=== PATIENT | female | born 1995 | race Caucasian/White ===

== ENCOUNTER → 2019-11-08 | Outpatient (CLI) | payer OTHER | END | disposition home or self-care (01) | LOC: LAB 09:27 | PROVIDERS: ATTEND Family Medicine | DX: E03.9 Hypothyroidism, unspecified (principal); N91.2 Amenorrhea, unspecified | CPT/HCPCS: 36415; 84443; 84702 ==

== ENCOUNTER → 2019-11-09 | Outpatient (CLI) | payer OTHER ==
[2019-11-09 16:50] LABS: HEMATOCRIT 43.1 % (36.0-47.0); RED BLOOD COUNT 5.21 x10^6/uL (3.50-5.40); RED CELL DISTRIBUTION WIDTH 12.6 % (11.5-14.5); WHITE BLOOD COUNT 5.8 x10^3/uL (4.0-11.0)
[2019-11-09 16:58] LABS: ALBUMIN 4.1 g/dL (3.4-5.0); ALBUMIN/GLOBULIN RATIO 1.1 (1.0-1.7); CREATININE 0.8 mg/dL (0.6-1.0); GFR 89.7; POTASSIUM 3.3 mmol/L (3.5-5.1); TOTAL BILIRUBIN 1.4 mg/dL (0.2-1.0); TOTAL PROTEIN 7.9 g/dL (6.4-8.2); URIC ACID 4.7 mg/dL (2.6-6.0)
[2019-11-10 00:07] LABS: HEMOGLOBIN A1C 7.6 % (4.8-5.6)
[2019-11-10 19:09] LABS: RUBELLA IGG ANTIBODY 1.69 index (Immune >0.99)
== END | disposition home or self-care (01) ==
LOC: LAB 14:30
PROVIDERS: ATTEND Obstetrics & Gynecology
DX: Z34.90 Encounter for supervision of normal pregnancy, unspecified, unspecified trimester (principal); Z3A.00 Weeks of gestation of pregnancy not specified
CPT/HCPCS: 36415; 80053; 81220; 83036; 83615; 84550; 85027; 86592; 86703; 86762; 86787; 86803; 86850; 86900; 86901; 87340

== ENCOUNTER → 2019-11-23 | Outpatient (CLI) | payer OTHER ==
--- NOTE | 2019-11-23 11:41 | RAD ---
OB <14 WKS W/TV History: Comparison: None. Findings: Multiple transabdominal sonographic images of the pelvis are submitted. There is an intrauterine gestational sac. Right ovary measured 2.7 x 1.3 x 2.1 cm with normal low resistance vascularity. Transvaginal ultrasound: Multiple transvaginal sonographic images of the pelvis are submitted. Uterus measured 9.6 x 5 x 5.3 cm. There is an intrauterine gestational sac with identifiable pole, demonstrable cardiac activity 111 bpm. [place]-rump length measurement of 0.64 cm corresponds with 6 weeks 3 days. Adjusted ultrasound age is 6 weeks 2 days with estimated delivery date of 07/16/2020. LMP age 7 weeks 4 days with estimated delivery date 07/07/2020. Near the identifiable pole with identifiable cardiac activity, there is another focus of more linear-appearing echogenicity in the gestational sac. If this does indeed represent another pole, this is not associated with identifiable cardiac activity. This is estimated about 0.5 cm in length. There is also focus of hypoechogenicity with internal echoes adjacent to the gestational sac about 1.9 x 0.6 cm likely due to subchorionic hemorrhage. Amniotic fluid volume is considered within normal limits. Gestational sac morphology is within normal limits. Placenta and anatomy are not well visualized due to the . Left ovary measured 3.1 x 2.7 x 2.5 cm with normal low resistance vascularity. Right ovary measured 3.2 x 1.8 x 2 cm with normal low resistance vascularity. No significant free fluid is demonstrated. Impression: 1. There is a viable intrauterine with identifiable cardiac activity associated with identifiable pole, adjusted ultrasound age 6 weeks 3 days with estimated delivery date 07/15/2020. Near the viable intrauterine , there is another focus of somewhat linear echogenicity in the gestational sac which could be due to nonviable pole/twin although given the early age, short-term follow-up is recommended to assess for cardiac activity. There is focus of subchorionic hemorrhage near gestational sac. Electronically signed by: Yuriy Aranda MD (11/23/2019 11:38 AM) [facility]
== END | disposition home or self-care (01) ==
LOC: US 10:42
PROVIDERS: ATTEND Obstetrics & Gynecology
DX: Z34.91 Encounter for supervision of normal pregnancy, unspecified, first trimester (principal); Z3A.01 Less than 8 weeks gestation of pregnancy
CPT/HCPCS: 76801; 76817

== ENCOUNTER 2020-01-19 06:38 | Emergency (ER) | payer OTHER ==
[~2020-01-19] VITALS: Ht 152.4 cm; Wt 65.3 kg
--- NOTE | 2020-01-19 07:11 | PHYS DOC ---
Adult General Chief Complaint Chief Complaint: FLANK PAIN [facility] Patient is a 24 year old female who is 15 weeks who reports with complaint of right flank pain and recent history of UTI like symptoms including some dysuria and increased frequency. She denies fever or chills, vaginal discharge or vaginal bleeding, constipation or diarrhea. She does admit to some mild lower abdominal cramping. No medications taken prior to arrival. No complications in to date. Review of Systems Review of Systems All other ROS is negative unless otherwise stated in HPI Allergies Allergies Allergies Coded Allergies Type Severity Reaction Last Updated Verified No Known Drug Allergies 01/19/20 No Physical Exam Physical Exam See above Constitutional: Well developed, well nourished, no acute distress, non-toxic appearance. [] HENT: Normocephalic, atraumatic, bilateral external ears normal, oropharynx moist, no oral exudates, nose normal. [] Eyes: PERRLA, EOMI, conjunctiva normal, no discharge. [] Neck: Normal range of motion, no tenderness, supple, no stridor. [] Cardiovascular:Heart rate regular rhythm, no murmur [] Lungs & Thorax: Bilateral breath sounds clear to auscultation [] Abdomen: Bowel sounds normal, soft, no tenderness, no masses, no pulsatile masses. [] Skin: Warm, dry, no erythema, no rash. [] Back: No tenderness, no CVA tenderness. [] Extremities: No tenderness, no cyanosis, no clubbing, ROM intact, no edema. [] Neurologic: Alert and oriented X 3, normal motor function, normal sensory function, no focal deficits noted. [] Psychologic: Affect normal, judgement normal, mood normal. [] Current Patient Data Vital Signs Vital Signs Date Time Temp Pulse Resp B/P (MAP) Pulse Ox O2 Delivery O2 Flow Rate FiO2 01/19/20 07:33 98.1 84 20 151/91 (111) 99 Room Air 98.1 Lab Values Laboratory Tests Test 01/19/20 06:45 01/19/20 07:05 Urine Collection Type Unknown Urine Color Yellow Urine Clarity Clear Urine pH 6.5 Urine Specific [place] 1.025 Urine Protein 100 mg/dL (NEG-TRACE) Urine Glucose (UA) >=1000 mg/dL (NEG) Urine Ketones (Stick) Negative mg/dL (NEG) Urine Blood Large (NEG) Urine Nitrite Positive (NEG) Urine Bilirubin Negative (NEG) Urine Urobilinogen Dipstick 1.0 mg/dL (0.2 mg/dL) Urine Leukocyte Esterase Moderate (NEG) Urine RBC 11-20 /HPF (0-2) Urine WBC >40 /HPF (0-4) Urine Bacteria Many /HPF (0-FEW) POC Urine HCG, Qualitative Hcg positive (Negative) EKG EKG [] Radiology/Procedures Radiology/Procedures [] Course & Med Decision Making Course & Med Decision Making Pertinent Labs and Imaging studies reviewed. (See chart for details) 0711: This patient is seen for details like symptoms and she is 15 weeks . We'll obtain urinalysis and heart tones. 0821: heart tones normal limit. Urinalysis shows urinary tract infection so we'll start on Macrobid twice daily for 5 days. Dragon Disclaimer Dragon Disclaimer This electronic medical record was generated, in whole or in part, using a voice recognition dictation system. Departure Departure Impression: Primary Impression: Urinary tract infection during Disposition: 01 HOME, SELF-CARE Condition: STABLE Referrals: GARCIA LEZAMA MD (PCP) Patient Instructions: - Urinary Tract Infection Additional Instructions: Push oral fluids. Please return to the ER or see your finance analyst if your symptoms are not improving in 48 hours. Scripts Nitrofurantoin Monohyd/M-Cryst (MACROBID 100 MG CAPSULE) 100 Mg Capsule 1 CAP PO BID for 7 Days, #14 CAP 0 Refills Prov: ADELSO VACA DO 01/19/20 ADELSO VACA DO Jan 19, 2020 07:11
[2020-01-19 07:25] LABS: BILIRUBIN,URINE NEGATIVE (NEG); CLARITY,URINE CLEAR; COLOR,URINE YELLOW; NITRITE,URINE POSITIVE (NEG); PH,URINE 6.5; PROTEIN,URINE 100 mg/dL (NEG-TRACE)
[2020-01-19 07:58] LABS: BACTERIA,URINE MANY /HPF (0-FEW); WBC,URINE >40 /HPF (0-4)
[2020-01-19 08:08] VITALS: BP 130/76
[2020-01-19] MEDS ORDERED: NITR100C62 PO (08:23)
[2020-01-19] MEDS ORDERED: NITROFURANTOIN MONOHYD/M-CRYST 100 MG CAPSULE. PO ONE (08:30)
== END 2020-01-19 08:51 | disposition home or self-care (01) ==
LOC: ER 06:38
DX: O23.42 Unspecified infection of urinary tract in pregnancy, second trimester (principal); R10.30 Lower abdominal pain, unspecified; Z3A.15 15 weeks gestation of pregnancy
CPT/HCPCS: 81001; 81025; 87086; 99283

== ENCOUNTER → 2020-02-07 | Outpatient (CLI) | payer OTHER ==
[2020-01-19 08:08] VITALS: BP 130/76
[~2020-02-07] MED LIST: NITR100C62 PO
[2020-02-07 08:24] LABS: FREE T4 1.39 ng/dL (0.76-1.46); THYROID STIM HORMONE (TSH) 4.175 uIU/mL (0.358-3.74)
[2020-02-07 20:07] LABS: HEMOGLOBIN A1C 6.2 % (4.8-5.6)
== END | disposition home or self-care (01) ==
LOC: LAB 07:04
PROVIDERS: ATTEND Obstetrics & Gynecology
DX: O24.012 Pre-existing type 1 diabetes mellitus, in pregnancy, second trimester (principal); Z3A.17 17 weeks gestation of pregnancy
CPT/HCPCS: 36415; 81511; 83036; 84439; 84443

== ENCOUNTER → 2020-04-09 | Outpatient (CLI) | payer OTHER | END | disposition home or self-care (01) | LOC: LAB 07:20 | PROVIDERS: ATTEND Obstetrics & Gynecology | DX: Z34.92 Encounter for supervision of normal pregnancy, unspecified, second trimester (principal); Z3A.00 Weeks of gestation of pregnancy not specified | CPT/HCPCS: 36415; 84439; 84443 ==

== ENCOUNTER → 2020-05-14 | Outpatient (CLI) | payer OTHER ==
--- NOTE | 2020-05-14 17:22 | RAD ---
EXAM: Ultrasound OB Greater than 14 weeks INDICATION: Reason: PRE EXISTING DIABETES GROWTH FOR PREGEST DM / Spl. Instructions: / History: TECHNIQUE: Real-time obstetrical ultrasound was performed with permanent freeze-frame documentation. COMPARISON: 11/23/2019 OB ultrasound ultrasound FINDINGS: POSITION: Cephalic HEART RATE: 1 33 bpm SAGAR: 12.2 cm PLACENTA: Posterior fundal CERVICAL LENGTH: Not well assessed MATERNAL UTERUS: Unremarkable. MATERNAL ADNEXA: Unremarkable. AGE/DATES: Gestational Age by LMP: 32 weeks 2 days Gestation Age by US: 34 weeks 5 days EDC by LMP: July 07, 2020 EDC by US: June 20, 2020 WEIGHT: 2516 grams +/- 372 grams PERCENTILE WEIGHT: 78%Unremarkable. BIOMETRIC PARAMETERS: BPD: 8.7 cm corresponding with 35 weeks 2 days HC: 31.3 cm corresponding with 35 weeks 1 day AC: 31.6 cm corresponding with 35 weeks 3 days FL: 6.4 cm corresponding with 33 weeks 1 day IMPRESSION: Normal OB ultrasound demonstrating a single viable fetus in cephalic position. Estimated gestational age of 34 weeks 5 days and EDC of June 20, 2020. Electronically signed by: Yoli Machado MD (05/14/2020 5:19 PM) [id number]
== END | disposition home or self-care (01) ==
LOC: US 14:58
PROVIDERS: ATTEND Obstetrics & Gynecology
DX: O24.013 Pre-existing type 1 diabetes mellitus, in pregnancy, third trimester (principal); E10.9 Type 1 diabetes mellitus without complications; Z3A.34 34 weeks gestation of pregnancy
CPT/HCPCS: 76805

== ENCOUNTER 2020-05-21 11:25 | Observation (INO) | payer OTHER ==
[~2020-05-21] VITALS: Ht 152.4 cm; Wt 169.0 kg
[2020-05-21 12:45] LABS: BASO % 1 % (0-3); EOS # 0.1 x10^3/uL (0.0-0.7); EOS % 1 % (0-3); HEMATOCRIT 34.1 % (36.0-47.0); LYMPH # 1.4 x10^3/uL (1.0-4.8); LYMPH % 22 % (24-48); MEAN CORPUSCULAR HEMOGLOBIN 28 pg (25-35); MEAN CORPUSCULAR HGB CONC 35 g/dL (31-37); MEAN CORPUSCULAR VOLUME 79 fL (79-100); MONO # 0.5 x10^3/uL (0.0-1.1); MONO % 8 % (0-9); NEUT # 4.4 x10^3/uL (1.8-7.7); NEUT % 68 % (31-73); PLATELET COUNT 196 x10^3/uL (140-400); RED BLOOD COUNT 4.31 x10^6/uL (3.50-5.40); RED CELL DISTRIBUTION WIDTH 13.1 % (11.5-14.5); WHITE BLOOD COUNT 6.5 x10^3/uL (4.0-11.0)
--- NOTE | 2020-05-21 15:20 | RAD ---
Biophysical profile: Clinical indications: Maternal diabetes. Findings: A single intrauterine is present in the cephalic position. heart rate is 136. breathing movements: 2. motion: 2. tone: 2. Amniotic fluid volume: 2. Therefore, the biophysical profile score is 8 out of 8. Cervical length-not visualized. SAGAR using the 4 quadrant method is 12.9 cm. Impression: Biophysical profile score is 8 out of 8. Electronically signed by: Segundo West MD (05/21/2020 3:18 PM) [id number]
--- NOTE | 2020-05-21 15:27 | RAD ---
Limited OB ultrasound study Clinical indications: . Maternal diabetes. Hypothyroidism. COMPARISON: May 14, 2020. FINDINGS: Single IUP is seen in cephalic presentation. heart rate is 136 bpm. BPD equals 8.5 cm which corresponds to 35 weeks 5 days. HC equals 30.50 cm which corresponds to 34 weeks 0 days. Abdominal circumference equals 22.28 cm which corresponds to 36 weeks 1 day. Femur length equals 6.75 cm which corresponds to 34 weeks 5 days. Average gestational age by ultrasound is 35 weeks 1 day +/- 3 weeks with an EDC of June 24, 2020. There's been normal interval growth. Estimated weight is 2699 g or 5 pounds and 15 ounces. Cervical length is not visualized. Posterior fundal grade 1 placenta is seen. SAGAR using the 4 quadrant method is 12.9 cm. IMPRESSION: Single IUP in cephalic presentation with gestational age of 35 weeks 1 day. Electronically signed by: Segundo West MD (05/21/2020 3:24 PM) [id number]
[2020-05-22 02:08] LABS: HEMOGLOBIN A1C 6.7 % (4.8-5.6)
== END 2020-05-21 14:11 | disposition home or self-care (01) ==
LOC: 3 SO LND 11:25
PROVIDERS: ADMIT Obstetrics & Gynecology; ATTEND Obstetrics & Gynecology
DX: O24.419 Gestational diabetes mellitus in pregnancy, unspecified control (principal); E03.9 Hypothyroidism, unspecified; Z3A.35 35 weeks gestation of pregnancy
CPT/HCPCS: 36415; 76815; 76819; 83036; 84443; 85025; G0378; G0379

== ENCOUNTER 2020-05-29 10:24 | Observation (INO) | payer OTHER ==
[2020-05-29 11:04] LABS: HEMATOCRIT 34.6 % (36.0-47.0); HEMOGLOBIN 12.2 g/dL (12.0-15.5); RED BLOOD COUNT 4.42 x10^6/uL (3.50-5.40); RED CELL DISTRIBUTION WIDTH 13.5 % (11.5-14.5)
[2020-05-29 11:25] LABS: CALCIUM 8.5 mg/dL (8.5-10.1); GFR 68.7; POTASSIUM 4.2 mmol/L (3.5-5.1)
[2020-05-29 11:30] LABS: ALBUMIN 2.7 g/dL (3.4-5.0); ALBUMIN/GLOBULIN RATIO 0.8 (1.0-1.7); TOTAL BILIRUBIN 0.6 mg/dL (0.2-1.0); TOTAL PROTEIN 6.1 g/dL (6.4-8.2); URIC ACID 7.3 mg/dL (2.6-6.0)
[2020-05-29 12:21] LABS: CREATININE,RANDOM URINE 333.5 mg/dL (Not Establ.)
--- NOTE | 2020-05-29 14:56 | RAD ---
EXAM: OBSTETRIC ULTRASOUND WITH BIOPHYSICAL PROFILE. HISTORY: Diabetes, well-being. COMPARISON: None. FINDINGS: Sonographic evaluation of the uterus, fetus and maternal pelvis was performed with biophysical profile. There is a single fetus in vertex presentation. heart rate is 136 bpm. Estimated gestational age based on measurements is 37 weeks 1 day. Head circumference, biparietal diameter, abdominal circumference and femur length are commensurate. Estimated weight is 3111 g. The placenta is anterior. There is no evidence of placenta previa. Amniotic fluid volume appears normal with amniotic fluid index 14.7 cm. Biophysical profile score: 8/8. breathin. tone: 2. movement: 2. Amniotic fluid volume: 2. The maternal adnexa are obscured by positioning currently. IMPRESSION: 1. Biophysical profile score: 8/8. 2. Single fetus in vertex presentation. heart rate 136 bpm. Estimated gestational age based on measurements 37 weeks 1 day. Electronically signed by: Socorro Schrader MD (05/29/2020 2:53 PM) [id number]
== END 2020-05-29 13:27 | disposition home or self-care (01) ==
LOC: 3 SO LND 10:24
PROVIDERS: ADMIT Obstetrics & Gynecology; ATTEND Obstetrics & Gynecology
DX: O13.3 Gestational [pregnancy-induced] hypertension without significant proteinuria, third trimester (principal); O62.9 Abnormality of forces of labor, unspecified; Z3A.34 34 weeks gestation of pregnancy
CPT/HCPCS: 36415; 59025; 76815; 76819; 80053; 82570; 83615; 84156; 84550; 85027; 87653; G0378; G0379

== ENCOUNTER 2020-06-01 13:56 | Observation (INO) | payer OTHER ==
[2020-06-01 14:15] LABS: BILIRUBIN,URINE NEGATIVE (NEG); CLARITY,URINE CLEAR; COLOR,URINE YELLOW; NITRITE,URINE NEGATIVE (NEG); PH,URINE 6.5 (<5.0-8.0); PROTEIN,URINE >=300 mg/dL (NEG-TRACE); UROBILINOGEN,URINE 0.2 mg/dL (0.2 mg/dL)
[2020-06-01] MEDS ORDERED: IV RINGERS,LACTATED 1000ML 1,000 ML IV PRN (14:15)
[2020-06-01 14:25] LABS: BACTERIA,URINE MANY /HPF (0-FEW); SQUAMOUS EPITHELIAL CELL,UR MANY /LPF
[2020-06-01 14:27] LABS: RBC,URINE RARE /HPF (0-2)
[2020-06-01 14:32] LABS: HEMATOCRIT 34.7 % (36.0-47.0); HEMOGLOBIN 12.2 g/dL (12.0-15.5); RED BLOOD COUNT 4.44 x10^6/uL (3.50-5.40); RED CELL DISTRIBUTION WIDTH 13.7 % (11.5-14.5); WHITE BLOOD COUNT 6.5 x10^3/uL (4.0-11.0)
[2020-06-01] MEDS ORDERED: NIFE30TA2 PO (14:40)
[2020-06-01] MEDS ORDERED: BETAMET ACET&NA PHOS 30 MG/5 ML VIAL. IM ONE (14:45)
[2020-06-01 14:53] LABS: ALBUMIN 2.4 g/dL (3.4-5.0); ALBUMIN/GLOBULIN RATIO 0.7 (1.0-1.7); GFR 68.7; POTASSIUM 4.2 mmol/L (3.5-5.1); TOTAL BILIRUBIN 0.5 mg/dL (0.2-1.0); URIC ACID 7.8 mg/dL (2.6-6.0)
[2020-06-01 14:58] LABS: CALCIUM 8.3 mg/dL (8.5-10.1)
[2020-06-01 15:12] VITALS: BP 142/74
[2020-06-01] MEDS ORDERED: BETAMET ACET&NA PHOS 30 MG/5 ML VIAL. IM SCH (15:30)
== END 2020-06-01 15:30 | disposition home or self-care (01) ==
LOC: 3 SO LND 13:56
PROVIDERS: ADMIT Obstetrics & Gynecology; ATTEND Obstetrics & Gynecology
DX: O13.3 Gestational [pregnancy-induced] hypertension without significant proteinuria, third trimester (principal); R60.9 Edema, unspecified; Z3A.37 37 weeks gestation of pregnancy
CPT/HCPCS: 36415; 80053; 81001; 83615; 84550; 85027; 87086; 96372; G0378; G0379; J0702

== ENCOUNTER 2020-06-02 13:55 | Observation (INO) | payer OTHER ==
[2020-06-01 15:12] VITALS: BP 142/74
[~2020-06-02 13:55] MED LIST changes: +NIFE30TA2 PO
[2020-06-02] MEDS ORDERED: IV RINGERS,LACTATED 1000ML 1,000 ML IV SCH (14:30)
[2020-06-02] MEDS ORDERED: BETAMET ACET&NA PHOS 30 MG/5 ML VIAL. IM ONE ×2 (14:30→15:00)
== END 2020-06-02 14:55 | disposition home or self-care (01) ==
LOC: 3 SO LND 13:55
PROVIDERS: ADMIT Obstetrics & Gynecology; ATTEND Obstetrics & Gynecology
DX: O26.893 Other specified pregnancy related conditions, third trimester (principal); O24.913 Unspecified diabetes mellitus in pregnancy, third trimester; O99.283 Endocrine, nutritional and metabolic diseases complicating pregnancy, third trimester; E03.9 Hypothyroidism, unspecified; Z3A.35 35 weeks gestation of pregnancy
CPT/HCPCS: 96372; G0378; G0379; J0702

== ENCOUNTER 2020-06-04 12:06 | Observation (INO) | payer OTHER ==
[2020-06-04] MEDS ORDERED: IV RINGERS,LACTATED 1000ML 1,000 ML IV SCH (12:07)
[2020-06-04] MEDS ORDERED: AMPICILLIN SODIUM 2 GM in IV NORMAL SALINE 100ML 100 ML IV SCH (12:30)
--- NOTE | 2020-06-04 15:18 | RAD ---
INDICATION: Reason: diabetic hypothyroid / Spl. Instructions: / History: COMPARISON: May 29, 2020 TECHNIQUE: Focused ultrasound was performed of the uterus in order to obtain a biophysical profile. Please note that this is not a complete anatomic survey. FINDINGS: Breathin Gross Body Movement: 2 Tone: 2 Amniotic Fluid Volume 2. Cephalic presentation at time of exam. heartbeat 145. Estimated gestational age 38 weeks and 2 days. Estimated weight 3459 g. Amniotic fluid index of 15.5. Estimated weight 93rd percentile. IMPRESSION: biophysical profile score is 8 out of 8. Electronically signed by: Mateusz Chung MD (06/04/2020 3:15 PM) [id number]
== END 2020-06-04 13:41 | disposition home or self-care (01) ==
LOC: 3 SO LND 12:06
PROVIDERS: ADMIT Obstetrics & Gynecology; ATTEND Obstetrics & Gynecology
DX: Z03.818 Encounter for observation for suspected exposure to other biological agents ruled out (principal); O99.283 Endocrine, nutritional and metabolic diseases complicating pregnancy, third trimester; O24.913 Unspecified diabetes mellitus in pregnancy, third trimester; Z3A.35 35 weeks gestation of pregnancy; Z79.4 Long term (current) use of insulin
CPT/HCPCS: 76819; G0378; G0379; U0003; 59025

== ENCOUNTER 2020-06-07 18:27 | Inpatient (IN) | payer OTHER ==
[~2020-06-07] VITALS: Ht 152.4 cm; Wt 86.6 kg
[2020-06-07] MEDS ORDERED: IV RINGERS,LACTATED 1000ML 1,000 ML IV SCH ×2 (19:08→19:15)
[2020-06-07] MEDS ORDERED: TERBUTALINE 1 MG/ML VIAL. SQ PRN (19:15)
[2020-06-07] MEDS ORDERED: BUTORPHANOL 2 MG/ML VIAL. IVP PRN (19:15)
[2020-06-07] MEDS ORDERED: 0.9 % SODIUM CHLORIDE 10 ML DISP.SYRIN. IV PRN (19:15)
[2020-06-07] MEDS ORDERED: hydrALAZINE 20 MG/ML VIAL. IVP ONE ×2 (19:15→20:30)
[2020-06-07] MEDS ORDERED: LIDOCAINE 1% PF 30 ML VIAL. INJ PRN (19:15)
[2020-06-07] MEDS ORDERED: OXYTOCIN 30 UNIT/500 ML PREMIX 500 ML IV PRN (19:15)
[2020-06-07] MEDS ORDERED: IV NORMAL SALINE 1000ML BAG 1,000 ML IV SCH (19:16)
[2020-06-07 19:22] LABS: BILIRUBIN,URINE NEGATIVE (NEG); CLARITY,URINE CLEAR; COLOR,URINE YELLOW; NITRITE,URINE NEGATIVE (NEG); PH,URINE 6.5 (<5.0-8.0); PROTEIN,URINE >=300 mg/dL (NEG-TRACE); UROBILINOGEN,URINE 0.2 mg/dL (0.2 mg/dL)
[2020-06-07] MEDS ORDERED: DINOPROSTONE 10 MG SUPP.VAG VG ONE (19:30)
[2020-06-07 19:33] LABS: HYALINE CASTS, URINE MANY /HPF; SQUAMOUS EPITHELIAL CELL,UR MOD /LPF
[2020-06-07 19:34] LABS: BACTERIA,URINE FEW /HPF (0-FEW); RBC,URINE >40 /HPF (0-2)
--- NOTE | 2020-06-07 19:48 | PDOC1 ---
PIGMENT PUSHER H&P Date of Admission: Date of Admission: Jun 07, 2020 at 18:27 History of Present Illness: EDC: 07/07/20 LMP 10/01/19 HPI: 25y @ 36.1 by L=13 presents to L&D with BOOTHE and RUQ pain. The pt was placed on indxn for 06/11 but with worsening symptoms decision was made to start indxn at this time. As the progressed, the pt has developed more BP. The pt has developed more swelling over the last couple of wks. Her BP have worsened to the point that Procardia 30 XL was started 06/01. Over the past wk her labs have been trending worse. From her baseline (on 11/09) to last wk (05/29 -> 06/01) her LFTs have increased ( -> -> ). The same trend with her Cr (0.8 -> 1.0 -> 1.0), Plt (301 -> 185 -> 156), uric acid (4.7 -> 7.3 -> 7.8), and LDH (97-> 118 -> 142). Based on meeting the criteria for superimposed preeclampsia based on the new onset proteinuria the pt is being induced. The pt also has hypothyroidism. Her Synthroid was increased in the second trimester but has remain stable over the last 2 trimesters. The pt has been seen by Aretha RUIZ throughout the . The pt has had type I DM since 7yo. She currently manages her DM with an insulin pump. Her FSBS control has been labial throughout the with her last HgbA1C being 6.7 on 05/21 (She has never had a HgbA1C below 6). Prior to the pt was on enalapril for HTN. She was able to be on no meds for most of the . PMH: Hypothyroidism, HTN, DM type I PSH: Denies OBHx: G1 Studio Model: LMP 10/01/19 SH: no tob, no EtOH FH: HTN, stroke, DM, [place], hypothyroidism Medications: Meds: Current Medications Medications (Trade) Dose Ordered Sig/Blas Route PRN Reason Start Time Stop Time Status Last Admin Dose Admin Ringer's Solution 1,000 ml @ 125 mls/hr Q8H IV 06/07/20 19:15 06/07/20 19:34 Hydralazine HCl (Apresoline Inj) 5 mg 1X ONCE IVP 06/07/20 19:15 06/07/20 19:16 DC 06/07/20 19:31 Ringer's Solution 1,000 ml @ 125 mls/hr Q8H IV 06/07/20 19:08 06/07/20 19:33 Allergies: Coded Allergies: No Known Drug Allergies (Unverified , 05/21/20) Physical Exam: Vital Signs: Vital Signs Date Time Temp Pulse Resp B/P (MAP) Pulse Ox O2 Delivery O2 Flow Rate FiO2 06/07/20 19:31 93 188/101 PE: GENERAL: No apparent distress. Alert and oriented. HEENT: Head normocephalic, atraumatic. NECK: Supple LUNGS: Clear to auscultation. HEART: RRR, S1, S2 present, pulses intact ABDOMEN: Soft, positive bowel sounds. EXTREMITIES: No cyanosis or edema. NEUROLOGIC: Normal speech, normal tone PSYCHIATRIC: Normal affect, normal mood. SKIN: No ulceration. FHT: 130s +acels/no decels/mLTV [place]: 2-5 min SVE: 2/-3 Labs: Laboratory Tests Test 06/07/20 18:38 Urine Collection Type Unknown Urine Color Yellow Urine Clarity Clear Urine pH 6.5 (<5.0-8.0) Urine Specific [place] 1.025 (1.000-1.030) Urine Protein >=300 mg/dL (NEG-TRACE) Urine Glucose (UA) Negative mg/dL (NEG) Urine Ketones (Stick) Trace mg/dL (NEG) Urine Blood Large (NEG) Urine Nitrite Negative (NEG) Urine Bilirubin Negative (NEG) Urine Urobilinogen Dipstick 0.2 mg/dL (0.2 mg/dL) Urine Leukocyte Esterase Negative (NEG) Urine RBC >40 /HPF (0-2) Urine WBC 1-4 /HPF (0-4) Urine Squamous Epithelial Cells Mod /LPF Urine Bacteria Few /HPF (0-FEW) Urine Hyaline Casts Many /HPF Urine Mucus Mod /LPF Assessment & Plan: A/P 25y @ 36.1 by L=13 1.) Indxn cervidil placed at 1946 2.) cHTN with superimposed preeclampsia- based on new onset proteinuria, on Procardia 30 XL and ASA, now with worsening BPs, given hydralazine 5mg x 1, abnml elevation of uric acid, Pr/Cr 0.662 (up from her baseline 0.074 on 11/23/19), will Mag in active labor 3.) Baseline PIH labs - wnl, baseline urine Pr/Cr wnl 4.) DDM - type I DM on insulin pump, HgbA1c 8.0 (09/21) -> 6.2 (02/06) -> 6.7 (05/21), labial control, s/p [facility] visit, nml echo, growth u/s on 05/14 (78%ile), recent growth 06/04/20 (3459g, 93%ile) 5.) Hypothyroidism - on synthroid 125mcg, TSH 2.662 (05/21), goal < 3.0 6.) s/p BMTZ 06/01 and 06/02 7.) Fetus cat I FHT, vtx, EFW 3459 (06/04, 93%) 8.) GBS neg 9.) TDAP given 05/09/20 10.) Girl - CARINA Jha MD Jun 07, 2020 19:48
[2020-06-07 19:52] LABS: BASO % 1 % (0-3); EOS # 0.1 x10^3/uL (0.0-0.7); EOS % 1 % (0-3); HEMATOCRIT 32.1 % (36.0-47.0); HEMOGLOBIN 11.5 g/dL (12.0-15.5); LYMPH # 1.2 x10^3/uL (1.0-4.8); LYMPH % 16 % (24-48); MEAN CORPUSCULAR HEMOGLOBIN 28 pg (25-35); MEAN CORPUSCULAR HGB CONC 36 g/dL (31-37); MEAN CORPUSCULAR VOLUME 77 fL (79-100); MONO # 0.5 x10^3/uL (0.0-1.1); MONO % 7 % (0-9); NEUT # 5.8 x10^3/uL (1.8-7.7); NEUT % 76 % (31-73); PLATELET COUNT 126 x10^3/uL (140-400); RED BLOOD COUNT 4.16 x10^6/uL (3.50-5.40); RED CELL DISTRIBUTION WIDTH 14.2 % (11.5-14.5); WHITE BLOOD COUNT 7.7 x10^3/uL (4.0-11.0)
[2020-06-07 20:12] LABS: ALBUMIN 2.1 g/dL (3.4-5.0); ALBUMIN/GLOBULIN RATIO 0.6 (1.0-1.7); CALCIUM 8.1 mg/dL (8.5-10.1); CREATININE 0.9 mg/dL (0.6-1.0); GFR 77.6; POTASSIUM 3.8 mmol/L (3.5-5.1); TOTAL BILIRUBIN 0.6 mg/dL (0.2-1.0); TOTAL PROTEIN 5.8 g/dL (6.4-8.2); URIC ACID 8.2 mg/dL (2.6-6.0)
[2020-06-07 20:27] VITALS: BP 184/108
[2020-06-07] MEDS ORDERED: LABETALOL 20 MG/4 ML DISP.SYRIN. IVP PRN ×2 (20:30)
[2020-06-07] MEDS ORDERED: LEVO150T PO (20:39)
[2020-06-07] MEDS ORDERED: PREN1TAB58 PO (20:40)
[2020-06-07] MEDS ORDERED: diphenhydrAMINE HCL 25 MG CAPSULE PO PRN (20:45)
[2020-06-07] MEDS: ACETAMINOPHEN 325 MG TABLET. PO PRN (21:53)
[2020-06-07] MEDS: hydrALAZINE 20 MG/ML VIAL. IVP PRN ×2 (22:16→23:18)
[2020-06-07] MEDS ORDERED: ONDANSETRON PF 4 MG/2 ML VIAL. IVP PRN (23:30)
[2020-06-08] MEDS: ACETAMINOPHEN 325 MG TABLET. PO PRN (03:07)
[2020-06-08] MEDS ORDERED: OXYTOCIN 30 UNIT/500 ML PREMIX 500 ML IV ONE (07:30)
[2020-06-08] MEDS ORDERED: MAGNESIUM SULFATE 2GM 50 ML IV ONE (08:15)
[2020-06-08] MEDS ORDERED: MAGNESIUM SULFATE 4GM 100 ML IV ONE (08:15)
--- NOTE | 2020-06-08 08:30 | PDOC ---
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 Denies changes in vision or abd pain. Nausea is better Objective: Vital Signs: Vital Signs Date Time Temp Pulse Resp B/P (MAP) Pulse Ox O2 Delivery O2 Flow Rate FiO2 06/07/20 19:31 93 188/101 06/07/20 20:27 98.5 18 Room Air 98.5 Vital Signs Date Time Temp Pulse Resp B/P (MAP) Pulse Ox O2 Delivery O2 Flow Rate FiO2 06/07/20 23:18 113 174/88 06/07/20 20:27 98.5 18 Room Air 98.5 Labs: Laboratory Tests Test 06/07/20 18:38 06/07/20 19:30 Urine Collection Type Unknown Urine Color Yellow Urine Clarity Clear Urine pH 6.5 (<5.0-8.0) Urine Specific [place] 1.025 (1.000-1.030) Urine Protein >=300 mg/dL (NEG-TRACE) Urine Glucose (UA) Negative mg/dL (NEG) Urine Ketones (Stick) Trace mg/dL (NEG) Urine Blood Large (NEG) Urine Nitrite Negative (NEG) Urine Bilirubin Negative (NEG) Urine Urobilinogen Dipstick 0.2 mg/dL (0.2 mg/dL) Urine Leukocyte Esterase Negative (NEG) Urine RBC >40 /HPF (0-2) Urine WBC 1-4 /HPF (0-4) Urine Squamous Epithelial Cells Mod /LPF Urine Bacteria Few /HPF (0-FEW) Urine Hyaline Casts Many /HPF Urine Mucus Mod /LPF White Blood Count 7.7 x10^3/uL (4.0-11.0) Red Blood Count 4.16 x10^6/uL (3.50-5.40) Hemoglobin 11.5 g/dL (12.0-15.5) L Hematocrit 32.1 % (36.0-47.0) L Mean Corpuscular Volume 77 fL (79-100) L Mean Corpuscular Hemoglobin 28 pg (25-35) Mean Corpuscular Hemoglobin Concent 36 g/dL (31-37) Red Cell Distribution Width 14.2 % (11.5-14.5) Platelet Count 126 x10^3/uL (140-400) L Neutrophils (%) (Auto) 76 % (31-73) H Lymphocytes (%) (Auto) 16 % (24-48) L Monocytes (%) (Auto) 7 % (0-9) Eosinophils (%) (Auto) 1 % (0-3) Basophils (%) (Auto) 1 % (0-3) Neutrophils # (Auto) 5.8 x10^3/uL (1.8-7.7) Lymphocytes # (Auto) 1.2 x10^3/uL (1.0-4.8) Monocytes # (Auto) 0.5 x10^3/uL (0.0-1.1) Eosinophils # (Auto) 0.1 x10^3/uL (0.0-0.7) Basophils # (Auto) 0.0 x10^3/uL (0.0-0.2) Sodium Level 136 mmol/L (136-145) Potassium Level 3.8 mmol/L (3.5-5.1) Chloride Level 103 mmol/L (98-107) Carbon Dioxide Level 19 mmol/L (21-32) L Anion Gap 14 (6-14) Blood Urea Nitrogen 17 mg/dL (7-20) Creatinine 0.9 mg/dL (0.6-1.0) Estimated GFR (Cockcroft-Gault) 77.6 BUN/Creatinine Ratio 19 (6-20) Glucose Level 123 mg/dL (70-99) H Uric Acid 8.2 mg/dL (2.6-6.0) H Calcium Level 8.1 mg/dL (8.5-10.1) L Total Bilirubin 0.6 mg/dL (0.2-1.0) Aspartate Amino Transferase (AST) 38 U/L (15-37) H Alanine Aminotransferase (ALT) 26 U/L (14-59) Alkaline Phosphatase 157 U/L (46-116) H Lactate Dehydrogenase 163 U/L (81-234) Total Protein 5.8 g/dL (6.4-8.2) L Albumin 2.1 g/dL (3.4-5.0) L Albumin/Globulin Ratio 0.6 (1.0-1.7) L Treponema pallidum Antibody Nonreactive (Nonreactive) Laboratory Tests 06/07/20 19:30 Laboratory Tests 06/07/20 19:30 Laboratory Tests 06/07/20 19:30 Physical Exam: GENERAL: No apparent distress. Alert and oriented. HEENT: Head normocephalic, atraumatic. NECK: Supple LUNGS: Clear to auscultation. HEART: RRR, S1, S2 present, pulses intact ABDOMEN: Soft, positive bowel sounds. EXTREMITIES: No cyanosis or edema. NEUROLOGIC: Normal speech, normal tone PSYCHIATRIC: Normal affect, normal mood. SKIN: No ulceration. FHT: 140s +acelx/no decels/mLTV [place]: 1-4 min SVE: 2/60/-3 Assessment & Plan: A/P 25y @ 35.6 by L=13 1.) Indxn s/p cervidil, will start Pit 2.) cHTN with superimposed preeclampsia- based on new onset proteinuria and now worsening BPs, Procardia 30 XL increased BID, on ASA, given hydralazine x 3 (), abnml elevation of AST and uric acid, Pr/Cr 0.662 (up from her baseline 0.074 on 11/23/19), will start Mag 3.) Baseline PIH labs - wnl, baseline urine Pr/Cr wnl 4.) DDM - type I DM on insulin pump, HgbA1c 8.0 (09/21) -> 6.2 (02/06) -> 6.7 (05/21), labial control, s/p VO[facility] visit, nml echo, growth u/s on 05/14 (78%ile), recent growth 06/04/20 (3459g, 93%ile) 5.) Hypothyroidism - on synthroid 125mcg, TSH 2.662 (05/21), goal < 3.0 6.) s/p BMTZ 06/01 and 06/02 7.) Fetus cat I FHT, vtx, EFW 3459 (06/04, 93%) 8.) GBS neg 9.) TDAP given 05/09/20 10.) Girl - CARINA Jha MD Jun 08, 2020 08:30
[2020-06-08] MEDS: MAGNESIUM SULFATE 20GM 500 ML IV SCH ×2 (10:50→20:20)
[2020-06-08] MEDS ORDERED: IV RINGERS,LACTATED 1000ML 1,000 ML IV ONE (12:02)
[2020-06-08] MEDS ORDERED: ROPIVacaine 0.2% PF 10 ML VIAL. ONE ×4 (12:05→18:33)
[2020-06-08] MEDS ORDERED: fentaNYL PF VIAL 100 MCG/2 ML VIAL ONE (12:05)
[2020-06-08] MEDS ORDERED: ONDANSETRON PF 4 MG/2 ML VIAL. IV PRN (12:15)
[2020-06-08] MEDS ORDERED: NALOXONE 0.4 MG/ML VIAL. IV PRN (12:15)
[2020-06-08] MEDS ORDERED: ePHEDrine PF IN SALINE 50 MG/10 ML SYRINGE. IV PRN (12:15)
[2020-06-08] MEDS ORDERED: L&D EPIDURAL 50 ML SYRINGE. ONE (12:30)
[2020-06-08] MEDS: L&D EPIDURAL SYRINGE 50 ML EPID PRN ×4 (15:34→23:30)
--- NOTE | 2020-06-08 16:03 | PDOC ---
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 Subjective: Pt comfortable with epidura Objective: Vital Signs: Vital Signs Date Time Temp Pulse Resp B/P (MAP) Pulse Ox O2 Delivery O2 Flow Rate FiO2 06/07/20 19:31 93 188/101 06/07/20 20:27 98.5 18 Room Air 98.5 Vital Signs Date Time Temp Pulse Resp B/P (MAP) Pulse Ox O2 Delivery O2 Flow Rate FiO2 06/08/20 15:34 16 Room Air 06/08/20 09:59 91 146/76 06/07/20 20:27 98.5 98.5 Labs: Laboratory Tests Test 06/07/20 18:38 06/07/20 19:30 06/08/20 15:06 Urine Collection Type Unknown Urine Color Yellow Urine Clarity Clear Urine pH 6.5 (<5.0-8.0) Urine Specific [place] 1.025 (1.000-1.030) Urine Protein >=300 mg/dL (NEG-TRACE) Urine Glucose (UA) Negative mg/dL (NEG) Urine Ketones (Stick) Trace mg/dL (NEG) Urine Blood Large (NEG) Urine Nitrite Negative (NEG) Urine Bilirubin Negative (NEG) Urine Urobilinogen Dipstick 0.2 mg/dL (0.2 mg/dL) Urine Leukocyte Esterase Negative (NEG) Urine RBC >40 /HPF (0-2) Urine WBC 1-4 /HPF (0-4) Urine Squamous Epithelial Cells Mod /LPF Urine Bacteria Few /HPF (0-FEW) Urine Hyaline Casts Many /HPF Urine Mucus Mod /LPF White Blood Count 7.7 x10^3/uL (4.0-11.0) Red Blood Count 4.16 x10^6/uL (3.50-5.40) Hemoglobin 11.5 g/dL (12.0-15.5) L Hematocrit 32.1 % (36.0-47.0) L Mean Corpuscular Volume 77 fL (79-100) L Mean Corpuscular Hemoglobin 28 pg (25-35) Mean Corpuscular Hemoglobin Concent 36 g/dL (31-37) Red Cell Distribution Width 14.2 % (11.5-14.5) Platelet Count 126 x10^3/uL (140-400) L Neutrophils (%) (Auto) 76 % (31-73) H Lymphocytes (%) (Auto) 16 % (24-48) L Monocytes (%) (Auto) 7 % (0-9) Eosinophils (%) (Auto) 1 % (0-3) Basophils (%) (Auto) 1 % (0-3) Neutrophils # (Auto) 5.8 x10^3/uL (1.8-7.7) Lymphocytes # (Auto) 1.2 x10^3/uL (1.0-4.8) Monocytes # (Auto) 0.5 x10^3/uL (0.0-1.1) Eosinophils # (Auto) 0.1 x10^3/uL (0.0-0.7) Basophils # (Auto) 0.0 x10^3/uL (0.0-0.2) Sodium Level 136 mmol/L (136-145) Potassium Level 3.8 mmol/L (3.5-5.1) Chloride Level 103 mmol/L (98-107) Carbon Dioxide Level 19 mmol/L (21-32) L Anion Gap 14 (6-14) Blood Urea Nitrogen 17 mg/dL (7-20) Creatinine 0.9 mg/dL (0.6-1.0) Estimated GFR (Cockcroft-Gault) 77.6 BUN/Creatinine Ratio 19 (6-20) Glucose Level 123 mg/dL (70-99) H Uric Acid 8.2 mg/dL (2.6-6.0) H Calcium Level 8.1 mg/dL (8.5-10.1) L Total Bilirubin 0.6 mg/dL (0.2-1.0) Aspartate Amino Transferase (AST) 38 U/L (15-37) H Alanine Aminotransferase (ALT) 26 U/L (14-59) Alkaline Phosphatase 157 U/L (46-116) H Lactate Dehydrogenase 163 U/L (81-234) Total Protein 5.8 g/dL (6.4-8.2) L Albumin 2.1 g/dL (3.4-5.0) L Albumin/Globulin Ratio 0.6 (1.0-1.7) L Treponema pallidum Antibody Nonreactive (Nonreactive) Glucose (Fingerstick) 79 mg/dL (70-99) Laboratory Tests 06/07/20 19:30 Laboratory Tests 06/07/20 19:30 Laboratory Tests 06/07/20 19:30 Physical Exam: GENERAL: No apparent distress. Alert and oriented. HEENT: Head normocephalic, atraumatic. NECK: Supple LUNGS: Clear to auscultation. HEART: RRR, S1, S2 present, pulses intact ABDOMEN: Soft, positive bowel sounds. EXTREMITIES: No cyanosis or edema. NEUROLOGIC: Normal speech, normal tone PSYCHIATRIC: Normal affect, normal mood. SKIN: No ulceration. FHT: 130's 10x10 acels/no decels/mLTV [place]: 1-5 min SVE: 3/60/-2 Assessment & Plan: A/P 25y @ 35.6 by L=13 1.) Indxn s/p cervidil, on 3U of Pit, AROM/cl for augmentation 2.) cHTN with superimposed preeclampsia- based on new onset proteinuria and now worsening BPs, Procardia 30 XL increased BID, on ASA, given hydralazine x 4, abnml elevation of AST and uric acid, Pr/Cr 0.662 (up from her baseline 0.074 on 11/23/19), on Mag for seizure proph 3.) Baseline PIH labs - wnl, baseline urine Pr/Cr wnl 4.) DDM - type I DM on insulin pump, HgbA1c 8.0 (09/21) -> 6.2 (02/06) -> 6.7 (05/21), labial control, s/p [facility] [facility] visit, nml echo, growth u/s on 05/14 (78%ile), recent growth 06/04/20 (3459g, 93%ile), FSBS q1hr 5.) Hypothyroidism - on synthroid 125mcg, TSH 2.662 (05/21), goal < 3.0 6.) s/p BMTZ 06/01 and 06/02 7.) Fetus cat I FHT, vtx, EFW 3459 (06/04, 93%) 8.) GBS neg 9.) TDAP given 05/09/20 10.) Girl - CARINA Jha MD Jun 08, 2020 16:02
[2020-06-08] MEDS: hydrALAZINE 20 MG/ML VIAL. IVP PRN (16:29)
[2020-06-08] MEDS ORDERED: BUPIVACAINE MPF 0.25% 30 ML VIAL. ONE (18:03)
[2020-06-08] MEDS: IV NORMAL SALINE 1000ML BAG 1,000 ML IV SCH (20:23)
[2020-06-08] MEDS: MAG HYDROX/ALUMINUM HYD/SIMETH 30 ML ORAL.SUSP PO PRN (21:12)
[2020-06-09] MEDS ORDERED: IV NORMAL SALINE 1000ML BAG 1,000 ML IV SCH (02:00)
[2020-06-09] MEDS ORDERED: fentaNYL PF VIAL 100 MCG/2 ML VIAL ONE (02:00)
[2020-06-09] MEDS ORDERED: AZITHROMYCIN 500 MG in IV NORMAL SALINE 250ML 250 ML IV ONE (02:00)
[2020-06-09] MEDS ORDERED: MORPHINE PF 10 MG/10 ML AMPUL. ONE (02:00)
[2020-06-09] MEDS ORDERED: CITRIC ACID/SODIUM CITRATE 30 ML SOLUTION. ONE ×2 (02:21→03:00)
[2020-06-09] MEDS ORDERED: SUCCINYLCHOLINE 200 MG/10 ML VIAL. ONE (02:44)
[2020-06-09] MEDS ORDERED: ceFAZolin 2GM PREMIX 2 GM/50 ML BAG IV ONE (03:00)
[2020-06-09] MEDS ORDERED: PROPOFOL 10 MG/ML (20ML) VIAL. IV ONE (03:39)
[2020-06-09] MEDS ORDERED: FAMOTIDINE 20 MG/2 ML VIAL ONE (03:40)
[2020-06-09] MEDS ORDERED: ONDANSETRON PF 4 MG/2 ML VIAL. ONE (03:40)
[2020-06-09] MEDS ORDERED: METOCLOPRAMIDE HCL 10 MG/2 ML VIAL. ONE (03:40)
[2020-06-09] MEDS ORDERED: SEVOFLURANE 61 TO 120 MINUTES. IH ONE (03:40)
[2020-06-09] MEDS ORDERED: PHENYLEPHRINE 10 MG/ML VIAL. ONE ×2 (03:50)
[2020-06-09] MEDS ORDERED: PHENYLEPHRINE in 0.9% NACL PF 1 MG/10 ML SYRINGE. IV ONE (03:50)
[2020-06-09] MEDS ORDERED: OXYTOCIN 30 UNIT/500 ML PREMIX 500 ML IV PRN (04:30)
[2020-06-09] MEDS ORDERED: BENZOCAINE 20% TOPICAL AEROSOL SPRAY 57GM CAN. TP PRN (04:30)
[2020-06-09] MEDS ORDERED: MMR per PROTOCOL. MC PRN (04:30)
[2020-06-09] MEDS ORDERED: TDaP (Adacel) per PROTOCOL. MC PRN (04:30)
[2020-06-09] MEDS ORDERED: ACETAMINOPHEN 325 MG TABLET. PO PRN (04:30)
[2020-06-09] MEDS ORDERED: 0.9 % SODIUM CHLORIDE 10 ML DISP.SYRIN. IV PRN (04:30)
[2020-06-09] MEDS ORDERED: diphenhydrAMINE ORAL ELIXIR 12.5 MG/5 ML ML PO PRN (04:30)
[2020-06-09] MEDS ORDERED: OXYTOCIN 10 UNIT/ML VIAL. ONE (04:36)
--- NOTE | 2020-06-09 04:55 | OP ---
DATE OF SURGERY: 06/09/2020 PREOPERATIVE DIAGNOSES: 1. Intrauterine at 36 weeks and 0 days by LMP equal to a 13-week ultrasound. 2. Chronic hypertension with superimposed preeclampsia. 3. Class D DM, type 1 diabetic, on insulin pump. 4. Hypothyroidism. 5. Status post betamethasone on 06/01/2020 and 06/02/2020. 6. GBS negative. 7. Arrest of dilation. POSTOPERATIVE DIAGNOSES: 1. Intrauterine at 36 weeks and 0 days by LMP equal to a 13-week ultrasound. 2. Chronic hypertension with superimposed preeclampsia. 3. Class D DM, type 1 diabetic, on insulin pump. 4. Hypothyroidism. 5. Status post betamethasone on 06/01/2020 and 06/02/2020. 6. GBS negative. 7. Arrest of dilation. PROCEDURE: Primary low transverse . SURGEON: Bry Mann MD ANESTHESIA: Spinal. COMPLICATIONS: None. FLUIDS: 1500 mL. URINE OUTPUT: 100 mL. ESTIMATED BLOOD LOSS: 1000 mL. FINDINGS: Viable female delivered at 0257, weighing 3690 grams with Apgars of 1, 2 and 3. A cord ABG was found to be 6.82 with a base excess of -18 and a cord VBG of 6.89 with a base excess of -18. Normal maternal anatomy noted. INDICATIONS: The patient is a 25-year-old 1, para 0, who presented to Labor and Delivery at 35 weeks and 5 days by LMP equal to a 13-week ultrasound with headache and right upper quadrant pain. The patient was scheduled for an induction on 06/11 for chronic hypertension with superimposed preeclampsia, but due to her worsening symptoms and her worsening blood pressures, the decision was made to start the induction during this admission. Of note, as the has progressed, the patient has developed more issues related to her blood pressure as well as more swelling. Most notably over the last couple of weeks where her blood pressures hayde to the point where Procardia 30 XL was started on 06/01. Over the past week, her labs had also been trending worse. Of note, her LFTs were increasing, but were still normal. Her creatinine was trending up, but still normal and her platelets were trending down, but still normal. Her uric acid was trending up and was found to be abnormal and her LDH was trending up and was still normal. The patient had met the diagnosis for preeclampsia based on her new onset proteinuria where she was found to have a protein creatinine ratio of 0.662 to on 05/29/2020. The plan was to expectantly manage her until the 06/11, but with the multiple severe range blood pressures requiring multiple IV treatment the induction was at this time. A Cervidil was then placed at 1946 at that time her cervix was dilated to 2 cm. After 12 hours' time, the Cervidil was removed, the patient's cervix still remained 2 cm, so she was started on Pitocin. The patient was started on magnesium a couple hours have starting Pitocin. At that time the heart tracing went from moderate to minimal variability. This was consistent with the expected changes in a heart tracing related to magnesium. Throughout the rest of her labor the heart tracing remained with minimal variability. No significant accelerations or decelerations were noted throughout the time the patient was on magnesium. The pt progressed slowly and at around 1600 she was found to be dilated to 3 cm. At that time, her membranes were artificially ruptured and clear fluid was noted. Approximately 3 hours later, the patient had made minimal change and was only found to be dilated to 4 cm. The patient continued to progress slowly and despite adequate contractions based on the Talihina units calculated based on her IUPC. The patient ultimately reached 7 cm dilated around 2230. The patient remained unchanged for 3 hours. Throughout her labor, the patient had irregular contractions with coupling at times, but still was found to be adequate. For the last several hours of her labor the patient was unable to get good pain control. We discussed continuing with increasing the Pitocin or just moving to a section for failure to dilate. The patient desired section. DESCRIPTION OF PROCEDURE: The patient was taken to the operating room where spinal was placed without difficulty. Due to the patient's difficulty breathing and oxygen saturation, anesthesia felt that it would be safer to perform the section under general. Immediately after the patient was intubated, a Pfannenstiel skin incision was made approximately 2 cm above her pubic symphysis and carried down to the underlying layer of fascia. The fascia was then nicked in the midline. The fascial incision was then extended laterally with Howell scissors. The superior aspect of the fascial incision was then grasped with William clamps, elevated and underlying rectus muscle was dissected off with Howell scissors. Attention was then turned to the inferior aspect of fascial incision, which was grasped again with William clamps, elevated and the underlying rectus muscle was dissected off with Howell scissors. The midline of the rectus muscle was then identified and to allow for the peritoneum to be grasped with 2 hemostats. The peritoneum was then entered sharply with Metzenbaum scissors. The peritoneal incision was then extended superiorly and inferiorly with good visualization of the bladder with traction and countertraction. At that point, the Arjun ring was placed in the patient's abdomen to gain better visualization of the lower uterine segment. A bladder flap was then created with Metzenbaum scissors. The lower uterine segment was then incised in transverse fashion with the scalpel at 0254. The incision was then extended laterally with traction and countertraction. At that point, the head was flexed but could not be brought through the skin incision with fundal pressure. A vacuum was then placed to allow for the necessary traction for delivery. At that point, the head was delivered and the vacuum was removed. Due to the broad shoulders, a shoulder dystocia was noted. With additional traction the shoulder was released, and the rest of infant was delivered atraumatically at 0257. The cord was double clamped and cut and the was handed over to the awaiting nurse. The placenta was then removed manually and the uterus was cleared of all clots and debris. The uterine incision was then repaired with #1 chromic in a running locked fashion. A second layer of the same suture was used to imbricate. Good hemostasis was noted. At that point, the gutters were copiously irrigated and cleared of all clots and debris. Again, good hemostasis was noted. At that point, the peritoneum was then reapproximated with 2-0 Vicryl in a running fashion. The muscle was reapproximated with 2-0 Vicryl in a running fashion. The fascia was then closed with 0 Vicryl in a running fashion. The skin was closed with 4-0 Monocryl in a subcuticular manner. Sponge, laps, and needles were correct x 3. Two grams of Ancef as well as 500 mg of azithromycin were given prior to the procedure. BRY MANN MD DR: RADHA/isabella JOB#: [id number] / [id number] JANENE
--- NOTE | 2020-06-09 05:25 | RAD ---
EXAM: CHEST AP ONLY INDICATION: Reason: possible pulm edema [id number] [id number] FOR CRITICAL RESULTS / Spl. Instructions: / History: . TECHNIQUE: Single view COMPARISON: None FINDINGS: The heart size is normal. The great vessels appear unremarkable. There is no hilar or mediastinal mass. Lungs show patchy airspace opacities in the left lung with more confluent consolidation at the medial left lung base. Mild diffuse prominence of the pulmonary interstitial vascular markings. There is no pleural effusion or pneumothorax. There are no significant osseous abnormalities. IMPRESSION: Findings suggesting pulmonary vascular congestion but with more confluent consolidation in the left lung, primarily in the left lower lobe. Cannot exclude superimposed pneumonia. Electronically signed by: Yoli Machado MD (06/09/2020 5:23 AM) [facility] [place]
[2020-06-09] MEDS: MAGNESIUM SULFATE 20GM 500 ML IV SCH ×2 (07:29→17:08)
[2020-06-09 08:02] LABS: HEMATOCRIT 27.9 % (36.0-47.0); HEMOGLOBIN 9.2 g/dL (12.0-15.5); RED BLOOD COUNT 3.44 x10^6/uL (3.50-5.40); RED CELL DISTRIBUTION WIDTH 14.2 % (11.5-14.5); WHITE BLOOD COUNT 23.7 x10^3/uL (4.0-11.0)
[2020-06-09 08:24] LABS: ALBUMIN 1.6 g/dL (3.4-5.0); ALBUMIN/GLOBULIN RATIO 0.5 (1.0-1.7); CREATININE 1.4 mg/dL (0.6-1.0); GFR 46.6; POTASSIUM 4.1 mmol/L (3.5-5.1); TOTAL BILIRUBIN 0.4 mg/dL (0.2-1.0); TOTAL PROTEIN 4.9 g/dL (6.4-8.2); URIC ACID 9.1 mg/dL (2.6-6.0)
--- NOTE | 2020-06-09 13:25 | PDOC ---
TRAILHEAD MAINTENANCE WORKER PROGRESS NOTE Subjective: Pt denies BOOTHE, changes in vision or abd pain. Objective: Vital Signs: Vital Signs Date Time Temp Pulse Resp B/P (MAP) Pulse Ox O2 Delivery O2 Flow Rate FiO2 06/08/20 09:22 18 Room Air 06/08/20 09:59 91 146/76 Vital Signs Date Time Temp Pulse Resp B/P (MAP) Pulse Ox O2 Delivery O2 Flow Rate FiO2 06/08/20 21:17 118 167/90 06/08/20 20:53 18 Room Air Labs: Laboratory Tests Test 06/08/20 15:06 06/08/20 16:12 06/08/20 17:02 06/09/20 07:35 Glucose (Fingerstick) 79 mg/dL (70-99) 88 mg/dL (70-99) 84 mg/dL (70-99) White Blood Count 23.7 x10^3/uL (4.0-11.0) H Red Blood Count 3.44 x10^6/uL (3.50-5.40) L Hemoglobin 9.2 g/dL (12.0-15.5) L Hematocrit 27.9 % (36.0-47.0) L Mean Corpuscular Volume 81 fL (79-100) # Mean Corpuscular Hemoglobin 27 pg (25-35) Mean Corpuscular Hemoglobin Concent 33 g/dL (31-37) Red Cell Distribution Width 14.2 % (11.5-14.5) Platelet Count 146 x10^3/uL (140-400) Sodium Level 134 mmol/L (136-145) L Potassium Level 4.1 mmol/L (3.5-5.1) Chloride Level 103 mmol/L (98-107) Carbon Dioxide Level 9 mmol/L (21-32) *L Anion Gap 22 (6-14) H Blood Urea Nitrogen 18 mg/dL (7-20) Creatinine 1.4 mg/dL (0.6-1.0) H Estimated GFR (Cockcroft-Gault) 46.6 BUN/Creatinine Ratio 13 (6-20) Glucose Level 265 mg/dL (70-99) H Uric Acid 9.1 mg/dL (2.6-6.0) H Calcium Level 8.0 mg/dL (8.5-10.1) L Magnesium Level 8.6 mg/dL (1.8-2.4) H Total Bilirubin 0.4 mg/dL (0.2-1.0) Aspartate Amino Transferase (AST) 30 U/L (15-37) Alanine Aminotransferase (ALT) 17 U/L (14-59) Alkaline Phosphatase 131 U/L (46-116) H Lactate Dehydrogenase 218 U/L (81-234) Total Protein 4.9 g/dL (6.4-8.2) L Albumin 1.6 g/dL (3.4-5.0) L Albumin/Globulin Ratio 0.5 (1.0-1.7) L Laboratory Tests 06/09/20 07:35 Laboratory Tests 06/09/20 07:35 Laboratory Tests 06/09/20 07:35 Physical Exam: GENERAL: No apparent distress. Alert and oriented. HEENT: Head normocephalic, atraumatic. NECK: Supple LUNGS: Clear to auscultation. HEART: RRR, S1, S2 present, pulses intact ABDOMEN: Soft, positive bowel sounds. EXTREMITIES: No cyanosis or edema. NEUROLOGIC: Normal speech, normal tone PSYCHIATRIC: Normal affect, normal mood. SKIN: No ulceration. Good UOP CTAB RRR S/NT/ND Dressing dry No C/C/E, 2+ reflexes Assessment & Plan: A/P 25y POD #0 s/p primary LTCS 1.) PO doing well 2.) cHTN with superimposed preeclampsia Mag recovery, mag level obtained based on patients symptoms, found to be elevated at 8.6, so mag held for 1hr, BP nml range since delivery (139/73, 129/67, 134/66), repeat PIH labs this am improved 3.) Low O2 sat just prior to delivery CXR performed, no pulm edema, since delivery sat better DDM - type I DM on insulin pump, most of FSBS since delivery have been 250 + 4.) Hypothyroidism - on synthroid 125mcg 5.) Subconjunctival hemorrhage of right eye expectant management (spontaneous resolution in 1-2 wks) 6.) Baby transferred to NICU 7.) Cont Mag recovery until 256 CARINA MANN MD Jun 09, 2020 13:25
[2020-06-09] MEDS: KETOROLAC 30 MG/ML VIAL. IV PRN ×2 (14:15→20:57)
[2020-06-09 15:40] LABS: ALBUMIN 1.6 g/dL (3.4-5.0); ALBUMIN/GLOBULIN RATIO 0.5 (1.0-1.7); CALCIUM 7.5 mg/dL (8.5-10.1); CREATININE 1.3 mg/dL (0.6-1.0); GFR 50.8; POTASSIUM 3.8 mmol/L (3.5-5.1); TOTAL BILIRUBIN 0.3 mg/dL (0.2-1.0)
[2020-06-09] MEDS: IV NORMAL SALINE 1000ML BAG 1,000 ML IV SCH (17:02)
[2020-06-10] VITALS (9 sets, daily range): BP systolic 151–181; BP diastolic 85–104
[2020-06-10] MEDS: KETOROLAC 30 MG/ML VIAL. IV PRN (06:01)
[2020-06-10] MEDS: IV NORMAL SALINE 1000ML BAG 1,000 ML IV SCH (06:01)
[2020-06-10 08:10] LABS: HEMATOCRIT 25.6 % (36.0-47.0); HEMOGLOBIN 8.9 g/dL (12.0-15.5); RED BLOOD COUNT 3.26 x10^6/uL (3.50-5.40); RED CELL DISTRIBUTION WIDTH 14.6 % (11.5-14.5)
[2020-06-10] MEDS: FERROUS SULFATE 325 MG TABLET. PO SCH ×3 (09:02→21:11)
[2020-06-10] MEDS: oxyCODONE/APAP 5/325 1 TAB TABLET PO PRN ×3 (09:02→20:43)
[2020-06-10] MEDS: DOCUSATE SODIUM 100 MG CAPSULE. PO PRN (09:02)
[2020-06-10] MEDS: MULTIVITAMIN with MINERAL TABLET. PO SCH (09:02)
--- NOTE | 2020-06-10 10:06 | PDOC ---
BEAD PICKER PROGRESS NOTE Subjective: Pt now with visual changes in the right eye. Denies BOOTHE. Discussed removal of mott despite swelling. Discussed timing of d/c so she can see baby at [facility]. Objective: Labs: Laboratory Tests Test 06/09/20 15:12 06/09/20 20:51 06/10/20 01:06 06/10/20 05:13 Sodium Level 132 mmol/L (136-145) L Potassium Level 3.8 mmol/L (3.5-5.1) Chloride Level 103 mmol/L (98-107) Carbon Dioxide Level 18 mmol/L (21-32) L Anion Gap 11 (6-14) Blood Urea Nitrogen 16 mg/dL (7-20) Creatinine 1.3 mg/dL (0.6-1.0) H Estimated GFR (Cockcroft-Gault) 50.8 BUN/Creatinine Ratio 12 (6-20) Glucose Level 152 mg/dL (70-99) H Calcium Level 7.5 mg/dL (8.5-10.1) L Magnesium Level 8.0 mg/dL (1.8-2.4) H Total Bilirubin 0.3 mg/dL (0.2-1.0) Aspartate Amino Transferase (AST) 38 U/L (15-37) H Alanine Aminotransferase (ALT) 21 U/L (14-59) Alkaline Phosphatase 130 U/L (46-116) H Total Protein 5.0 g/dL (6.4-8.2) L Albumin 1.6 g/dL (3.4-5.0) L Albumin/Globulin Ratio 0.5 (1.0-1.7) L Glucose (Fingerstick) 78 mg/dL (70-99) 100 mg/dL (70-99) H 64 mg/dL (70-99) L Test 06/10/20 07:20 White Blood Count 11.0 x10^3/uL (4.0-11.0) Red Blood Count 3.26 x10^6/uL (3.50-5.40) L Hemoglobin 8.9 g/dL (12.0-15.5) L Hematocrit 25.6 % (36.0-47.0) L Mean Corpuscular Volume 79 fL (79-100) Mean Corpuscular Hemoglobin 27 pg (25-35) Mean Corpuscular Hemoglobin Concent 35 g/dL (31-37) Red Cell Distribution Width 14.6 % (11.5-14.5) H Platelet Count 128 x10^3/uL (140-400) L Laboratory Tests 06/10/20 07:20 Laboratory Tests 06/09/20 15:12 Laboratory Tests 06/09/20 15:12 06/10/20 07:20 Physical Exam: GENERAL: No apparent distress. Alert and oriented. HEENT: Head normocephalic, atraumatic. NECK: Supple LUNGS: Clear to auscultation. HEART: RRR, S1, S2 present, pulses intact ABDOMEN: Soft, positive bowel sounds. EXTREMITIES: No cyanosis or edema. NEUROLOGIC: Normal speech, normal tone PSYCHIATRIC: Normal affect, normal mood. SKIN: No ulceration. Inc: C/D/I Assessment & Plan: A/P 25y POD #1 s/p primary LTCS 1.) PO doing well, d/c Mott and IVF, advance diet 2.) cHTN with superimposed preeclampsia s/p Mag recovery, BPs mild to severe over last 24 hrs, may need to continue Procardia 30, labs improving with the exception of Cr (last 1.3), good UOP, will repeat labs tomorrow 3.) Low O2 sat just prior to delivery sat well on room air, CXR - suggesting pulmonary vascular congestion DDM - type I DM on insulin pump, FSBS PO in 200s, have improved last 12 hrs 4.) Anemia Hgb 11.5 -> 8.9, on Fe 5.) Hypothyroidism - on synthroid 125mcg 6.) Subconjunctival hemorrhage of right eye now with vision changes, ophthalmology does not see inpts 7.) Metabolic acidosis CO2 improving (9 -> 18) 8.) Baby transferred to [facility] N[facility] (umbilical cord acidosis like 2/2 maternal acidema based on post delivery CO2 of 9 on CMP) 9.) Cont PO care CARINA MANN MD Jun 10, 2020 10:06
[2020-06-10] MEDS ORDERED: BISACODYL 10 MG SUPP.RECT. PR ONE (11:00)
[2020-06-10] MEDS ORDERED: DOCUSATE SODIUM 283 MG/5 ML ENEMA. PR ONE (11:00)
[2020-06-10] MEDS: LEVOTHYROXINE 125 MCG TABLET PO SCH (11:44)
[2020-06-10] MEDS: IBUPROFEN 400 MG TABLET. PO PRN (15:08)
[2020-06-10] MEDS: MAG HYDROX/ALUMINUM HYD/SIMETH 30 ML ORAL.SUSP PO PRN (20:43)
[2020-06-10] MEDS: SIMETHICONE 80 MG TAB.CHEW PO PRN (20:56)
[2020-06-10] MEDS: hydrALAZINE 20 MG/ML VIAL. IVP PRN (22:31)
[2020-06-11] VITALS (11 sets, daily range): BP systolic 136–190; BP diastolic 77–102
[2020-06-11 04:24] LABS: HEMATOCRIT 24.9 % (36.0-47.0); HEMOGLOBIN 8.8 g/dL (12.0-15.5); RED BLOOD COUNT 3.17 x10^6/uL (3.50-5.40); RED CELL DISTRIBUTION WIDTH 14.7 % (11.5-14.5); WHITE BLOOD COUNT 10.5 x10^3/uL (4.0-11.0)
[2020-06-11 04:46] LABS: ALBUMIN 1.6 g/dL (3.4-5.0); ALBUMIN/GLOBULIN RATIO 0.5 (1.0-1.7); CALCIUM 8.3 mg/dL (8.5-10.1); CREATININE 0.9 mg/dL (0.6-1.0); GFR 77.6; POTASSIUM 3.7 mmol/L (3.5-5.1); TOTAL BILIRUBIN 0.2 mg/dL (0.2-1.0); TOTAL PROTEIN 5.1 g/dL (6.4-8.2)
[2020-06-11] MEDS: oxyCODONE/APAP 5/325 1 TAB TABLET PO PRN ×4 (05:09→18:17)
[2020-06-11] MEDS: LEVOTHYROXINE 125 MCG TABLET PO SCH (05:49)
[2020-06-11] MEDS: FERROUS SULFATE 325 MG TABLET. PO SCH ×3 (08:00→18:17)
[2020-06-11] MEDS: MAG HYDROX/ALUMINUM HYD/SIMETH 30 ML ORAL.SUSP PO PRN (08:20)
[2020-06-11] MEDS: DOCUSATE SODIUM 100 MG CAPSULE. PO PRN (08:20)
[2020-06-11] MEDS: IBUPROFEN 400 MG TABLET. PO PRN ×2 (08:20→18:17)
[2020-06-11] MEDS: MULTIVITAMIN with MINERAL TABLET. PO SCH ×2 (08:21→09:00)
[2020-06-11] MEDS: SIMETHICONE 80 MG TAB.CHEW PO PRN ×2 (08:21→21:14)
[2020-06-11] MEDS: hydrALAZINE 20 MG/ML VIAL. IVP PRN (08:22)
--- NOTE | 2020-06-11 08:25 | NUR ---
BP 190/99, HR 98, Apresoline 10mg IVP given along with her scheduled dose of po Procardia 30mg. Spoke with pt regarding her extremely low albumin level of 1.6 and the need to increase her protein consumption to help get extra fluid excreted. Ensure with 20g protein ordered with breakfast meal. Pt verbalizes wanting to leave today to go be with her baby at [facility]. Pt requesting any interventions that would help expedite this process like IV albumin and lasix. Pt verbalizes feeling very "puffy" and uncomfortable. Pt has significant swelling in her perineal area, thighs and extending down to her lower legs. She also has swelling in her abdomen, forearms and hands. Will monitor BP for improvement.
[2020-06-11] MEDS: FUROSEMIDE 40 MG TABLET. PO SCH ×2 (09:57→13:31)
--- NOTE | 2020-06-11 09:57 | PDOC ---
CHRISTMAS TREE FARMER PROGRESS NOTE Subjective: The pt is frustrated about her BPs, swelling and pain. Her mott was not removed due to the swelling. She would like to start Lasix and albumin. The pt and her nurse feel that she will feel better with additional diaresis. She also has noticed her alb is low on her BMP and would like alb. Explained that typically the end points we look at UOP, LFTs, Plt, and renal fxn are what we base tx on. Alb is expected to be low with preeclampsia and we would not use alb to replace it. Explained Lasix may be reasonable ant that I would discuss with MFM. The pt has lost significant amt of edema since delivery despite the edema she has in her vulva. Objective: Vital Signs: Vital Signs Date Time Temp Pulse Resp B/P (MAP) Pulse Ox O2 Delivery O2 Flow Rate FiO2 06/10/20 09:20 87 20 157/87 (110) 95 Room Air 06/10/20 10:20 98.6 98.6 Vital Signs Date Time Temp Pulse Resp B/P (MAP) Pulse Ox O2 Delivery O2 Flow Rate FiO2 06/11/20 08:44 130 22 164/90 (114) 97 Room Air 06/11/20 07:45 98.3 98.3 Labs: Laboratory Tests Test 06/10/20 10:35 06/11/20 03:25 Glucose (Fingerstick) 183 mg/dL (70-99) H White Blood Count 10.5 x10^3/uL (4.0-11.0) Red Blood Count 3.17 x10^6/uL (3.50-5.40) L Hemoglobin 8.8 g/dL (12.0-15.5) L Hematocrit 24.9 % (36.0-47.0) L Mean Corpuscular Volume 79 fL (79-100) Mean Corpuscular Hemoglobin 28 pg (25-35) Mean Corpuscular Hemoglobin Concent 35 g/dL (31-37) Red Cell Distribution Width 14.7 % (11.5-14.5) H Platelet Count 150 x10^3/uL (140-400) Sodium Level 141 mmol/L (136-145) Potassium Level 3.7 mmol/L (3.5-5.1) Chloride Level 107 mmol/L (98-107) Carbon Dioxide Level 26 mmol/L (21-32) Anion Gap 8 (6-14) Blood Urea Nitrogen 11 mg/dL (7-20) Creatinine 0.9 mg/dL (0.6-1.0) Estimated GFR (Cockcroft-Gault) 77.6 BUN/Creatinine Ratio 12 (6-20) Glucose Level 145 mg/dL (70-99) H Calcium Level 8.3 mg/dL (8.5-10.1) L Total Bilirubin 0.2 mg/dL (0.2-1.0) Aspartate Amino Transferase (AST) 29 U/L (15-37) Alanine Aminotransferase (ALT) 16 U/L (14-59) Alkaline Phosphatase 138 U/L (46-116) H Total Protein 5.1 g/dL (6.4-8.2) L Albumin 1.6 g/dL (3.4-5.0) L Albumin/Globulin Ratio 0.5 (1.0-1.7) L Laboratory Tests 06/11/20 03:25 Laboratory Tests 06/11/20 03:25 Laboratory Tests 06/11/20 03:25 Physical Exam: GENERAL: No apparent distress. Alert and oriented. HEENT: Head normocephalic, atraumatic. NECK: Supple LUNGS: Clear to auscultation. HEART: RRR, S1, S2 present, pulses intact ABDOMEN: Soft, positive bowel sounds. EXTREMITIES: No cyanosis or edema. NEUROLOGIC: Normal speech, normal tone PSYCHIATRIC: Normal affect, normal mood. SKIN: No ulceration. Assessment & Plan: A/P 25y POD #2 s/p primary LTCS 1.) PO doing well 2.) cHTN with superimposed preeclampsia s/p Mag recovery, BPs worse over last 24hrs has been tx twice with hydralazine 10mg IV, increased Procardia to 60 this am, labs improving along with Cr which is now 0.9, good UOP 3.) Low O2 sat just prior to delivery sat well on room air, CXR - suggesting pulmonary vascular congestion 4.) DDM - type I DM on insulin pump, FSBS PO in 200s, have improved last 12 hrs 4.) Anemia Hgb 11.5 -> 8.9, on Fe 5.) Hypothyroidism - on synthroid 125mcg 6.) Subconjunctival hemorrhage of right eye now with vision changes, discussed case with ophthalmology 7.) Metabolic acidosis CO2 resolved (9 -> 18 -> 26) 8.) Baby transferred to [facility] N[facility] (umbilical cord acidosis like 2/2 maternal acidema based on post delivery CO2 of 9 on CMP) 9.) Cont PO care CARINA MANN MD Jun 11, 2020 09:57
[2020-06-11] MEDS ORDERED: POTASSIUM CHLORIDE 20 MEQ TABLET.ER. PO ONE (10:00)
[2020-06-11 17:23] LABS: CALCIUM 9.2 mg/dL (8.5-10.1); CREATININE 1.1 mg/dL (0.6-1.0); GFR 61.6
--- NOTE | 2020-06-11 18:00 | NUR ---
Pt has an insulin pump in which she is checking her own BS and then dosing according to her results.
--- NOTE | 2020-06-11 18:02 | NUR ---
BMP results called to Dr. Lewis with new order to change the lasix to 20mg for tonights dose.
[2020-06-11] MEDS ORDERED: FUROSEMIDE 20 MG TABLET PO ONE (21:00)
[2020-06-12 00:22] VITALS: BP 164/87
[2020-06-12] MEDS: IBUPROFEN 400 MG TABLET. PO PRN (04:22)
[2020-06-12] MEDS: LEVOTHYROXINE 125 MCG TABLET PO SCH (04:22)
[2020-06-12] MEDS: SIMETHICONE 80 MG TAB.CHEW PO PRN (04:22)
[2020-06-12 04:31] VITALS: BP 144/72
[2020-06-12 04:35] LABS: BASO % 0 % (0-3); EOS # 0.3 x10^3/uL (0.0-0.7); EOS % 4 % (0-3); HEMATOCRIT 25.5 % (36.0-47.0); HEMOGLOBIN 8.9 g/dL (12.0-15.5); LYMPH # 1.6 x10^3/uL (1.0-4.8); LYMPH % 21 % (24-48); MEAN CORPUSCULAR HEMOGLOBIN 28 pg (25-35); MEAN CORPUSCULAR HGB CONC 35 g/dL (31-37); MEAN CORPUSCULAR VOLUME 79 fL (79-100); MONO # 0.9 x10^3/uL (0.0-1.1); MONO % 12 % (0-9); NEUT # 4.6 x10^3/uL (1.8-7.7); NEUT % 63 % (31-73); PLATELET COUNT 157 x10^3/uL (140-400); RED BLOOD COUNT 3.22 x10^6/uL (3.50-5.40); RED CELL DISTRIBUTION WIDTH 14.4 % (11.5-14.5); WHITE BLOOD COUNT 7.3 x10^3/uL (4.0-11.0)
[2020-06-12 04:53] LABS: ALBUMIN 1.8 g/dL (3.4-5.0); ALBUMIN/GLOBULIN RATIO 0.5 (1.0-1.7); CALCIUM 8.9 mg/dL (8.5-10.1); GFR 68.7; POTASSIUM 3.5 mmol/L (3.5-5.1); TOTAL BILIRUBIN 0.3 mg/dL (0.2-1.0); TOTAL PROTEIN 5.8 g/dL (6.4-8.2)
[2020-06-12 08:15] VITALS: BP 144/90
[2020-06-12 08:32] VITALS: BP 144/90
[2020-06-12] MEDS: MULTIVITAMIN with MINERAL TABLET. PO SCH (08:32)
[2020-06-12] MEDS ORDERED: NIFE60TA PO (08:32)
[2020-06-12] MEDS ORDERED: OXYC1TAB15 PO (08:32)
[2020-06-12] MEDS ORDERED: DOCU-109 PO (08:32)
[2020-06-12] MEDS: FERROUS SULFATE 325 MG TABLET. PO SCH (08:32)
[2020-06-12] MEDS ORDERED: IBUP-1060 PO (08:32)
[2020-06-12] MEDS: DOCUSATE SODIUM 100 MG CAPSULE. PO PRN (08:32)
[2020-06-12] MEDS ORDERED: FERR325T14 PO (08:33)
--- NOTE | 2020-06-12 09:13 | NUR ---
Discharge and follow up instructions reviewed and given to pt. along with 5 Rxs. Pt deineid any questions or concerns at time of D/C. Pt taken out of the hospital per W/C with her and her belongings by her side.
--- NOTE | 2020-06-12 09:42 | PDOC ---
OCEAN EXPORT COORDINATOR PROGRESS NOTE Subjective: Pt with good pain control. Gorge PO. Has voided twice since removal of Mott. The pt feels better after the Lasix. Discussed the importance of monitoring BP at home and at [facility]. Objective: Vital Signs: Vital Signs Date Time Temp Pulse Resp B/P (MAP) Pulse Ox O2 Delivery O2 Flow Rate FiO2 06/11/20 07:45 Room Air 06/11/20 07:45 98.3 98 18 190/99 (129) 96 98.3 Vital Signs Date Time Temp Pulse Resp B/P (MAP) Pulse Ox O2 Delivery O2 Flow Rate FiO2 06/12/20 08:32 109 144/90 06/12/20 08:15 98.4 18 97 Room Air 98.4 Labs: Laboratory Tests Test 06/11/20 17:00 06/12/20 03:15 Sodium Level 138 mmol/L (136-145) 140 mmol/L (136-145) Potassium Level 4.0 mmol/L (3.5-5.1) 3.5 mmol/L (3.5-5.1) Chloride Level 100 mmol/L (98-107) 100 mmol/L (98-107) Carbon Dioxide Level 30 mmol/L (21-32) 32 mmol/L (21-32) Anion Gap 8 (6-14) 8 (6-14) Blood Urea Nitrogen 14 mg/dL (7-20) 13 mg/dL (7-20) Creatinine 1.1 mg/dL (0.6-1.0) H 1.0 mg/dL (0.6-1.0) Estimated GFR (Cockcroft-Gault) 61.6 68.7 Glucose Level 253 mg/dL (70-99) H 89 mg/dL (70-99) Calcium Level 9.2 mg/dL (8.5-10.1) 8.9 mg/dL (8.5-10.1) White Blood Count 7.3 x10^3/uL (4.0-11.0) Red Blood Count 3.22 x10^6/uL (3.50-5.40) L Hemoglobin 8.9 g/dL (12.0-15.5) L Hematocrit 25.5 % (36.0-47.0) L Mean Corpuscular Volume 79 fL (79-100) Mean Corpuscular Hemoglobin 28 pg (25-35) Mean Corpuscular Hemoglobin Concent 35 g/dL (31-37) Red Cell Distribution Width 14.4 % (11.5-14.5) Platelet Count 157 x10^3/uL (140-400) Neutrophils (%) (Auto) 63 % (31-73) Lymphocytes (%) (Auto) 21 % (24-48) L Monocytes (%) (Auto) 12 % (0-9) H Eosinophils (%) (Auto) 4 % (0-3) H Basophils (%) (Auto) 0 % (0-3) Neutrophils # (Auto) 4.6 x10^3/uL (1.8-7.7) Lymphocytes # (Auto) 1.6 x10^3/uL (1.0-4.8) Monocytes # (Auto) 0.9 x10^3/uL (0.0-1.1) Eosinophils # (Auto) 0.3 x10^3/uL (0.0-0.7) Basophils # (Auto) 0.0 x10^3/uL (0.0-0.2) BUN/Creatinine Ratio 13 (6-20) Total Bilirubin 0.3 mg/dL (0.2-1.0) Aspartate Amino Transferase (AST) 33 U/L (15-37) Alanine Aminotransferase (ALT) 19 U/L (14-59) Alkaline Phosphatase 159 U/L (46-116) H Total Protein 5.8 g/dL (6.4-8.2) L Albumin 1.8 g/dL (3.4-5.0) L Albumin/Globulin Ratio 0.5 (1.0-1.7) L Laboratory Tests 06/12/20 03:15 Laboratory Tests 06/11/20 17:00 06/12/20 03:15 Laboratory Tests 06/12/20 03:15 Physical Exam: GENERAL: No apparent distress. Alert and oriented. HEENT: Head normocephalic, atraumatic. NECK: Supple LUNGS: Clear to auscultation. HEART: RRR, S1, S2 present, pulses intact ABDOMEN: Soft, positive bowel sounds. EXTREMITIES: No cyanosis or edema. NEUROLOGIC: Normal speech, normal tone PSYCHIATRIC: Normal affect, normal mood. SKIN: No ulceration. Inc: C/D/I Assessment & Plan: A/P 25y POD #3 s/p primary LTCS 1.) PO doing well, mott d/ernesto and pt able to void 2.) cHTN with superimposed preeclampsia s/p Mag recovery, BPs improved on regime of Procardia 60 XL, did not require any IV tx overnight 3.) Fluid overload s/p 24hrs of lasix, pt reports objectively feeling better, good UOP, Cr only with slight increase to 1.0 4.) Low O2 sat just prior to delivery sat well on room air, CXR - suggesting pulmonary vascular congestion 5.) DDM - type I DM on insulin pump, FSBS still somewhat labial 6.) Anemia Hgb stable, on Fe 7.) Hypothyroidism - on synthroid 125mcg 8.) Subconjunctival hemorrhage of right eye will f/u with ophthalmology as outpt in 1-2wks 9.) Metabolic acidosis CO2 resolved 10.) Baby transferred to [facility] NICU 11.) D/c home CARINA MANN MD Jun 12, 2020 09:42
--- NOTE | 2020-06-12 13:33 | DS ---
DATE OF DISCHARGE: 06/12/2020 ADMISSION DIAGNOSES: 1. Intrauterine at 35 weeks and 5 days by last menstrual period equal to a 13-week ultrasound. 2. Chronic hypertension with superimposed preeclampsia. 3. White classification D diabetes, type 1 diabetes, on insulin pump. 4. Hypothyroidism. 5. Status post betamethasone. 6. GBS negative. DISCHARGE DIAGNOSES: 1. Intrauterine at 35 weeks and 5 days by last menstrual period equal to a 13-week ultrasound. 2. Chronic hypertension with superimposed preeclampsia. 3. White classification D diabetes, type 1 diabetes, on insulin pump. 4. Hypothyroidism. 5. Status post betamethasone. 6. GBS negative. 7. Arrest of dilation. PROCEDURE: Primary low transverse . BRIEF HOSPITAL COURSE: The patient is a 25-year-old 1, para 0, who presented to Labor and Delivery at 35 weeks and 5 days by LMP equal to a 13-week ultrasound with headache and right upper quadrant pain. The patient originally was scheduled for induction on 06/11, but due to her worsening symptoms, decision was made to start the induction during this admission. Of note, as the had progressed over the last couple of weeks, the patient had developed more and more blood pressure issues as well as swelling. Her blood pressure had worsened to the point where she needed to be started on Procardia 30 XL on 06/01. Also, of note, over the past couple of weeks, her labs have been trending worse including her LFTs, creatinine and platelets even her uric acid was found to be in that point of levels over the last couple of weeks. The patient had met the diagnosis of superimposed preeclampsia after having a urine protein to creatinine ratio greater than 0.662. The patient had been co-managed with [facility] throughout the along with her chronic hypertension. The patient had also had diabetes type 1 since age of 57 years old. She had been managing with her pump. Throughout her , her fingersticks have been labile and with no time had her hemoglobin A1c being below 6.5 with the last of which being 6.7 on 05/21. The patient had a Cervidil placed at 1946 on 06/07/2020. The following morning, the Cervidil was removed with her cervix being unchanged and remained at 2 cm dilated. At that time, Pitocin was started. The patient was also started on magnesium a couple of hours later for seizure prophylaxis. At that time, it was noted that the heart tracing went from moderate to minimal variability. This was expected with changes related to the magnesium treatment throughout the rest of her labor, the patient did not have any significant accelerations or decelerations on the magnesium. The patient progressed slowly and around 1600 was found to be 3 cm dilated. At that time, her membranes were artificially ruptured. After 3 hours' time, the patient still continued to change slowly and was found to only be dilated to 4 cm. Throughout her labor, her contractions were irregular with a coupling, but despite this, her [place] units based on her IUPC were found to be adequate. The patient ultimately reached 7 cm around 2230. The patient remained unchanged for 3 hours. At that time, discussion was held with the patient whether to continue the course with increasing Pitocin or just move to section for failure to dilate or for arrest of dilation. The patient felt a section was a better decision. The patient underwent said procedure without complications. Of note, the baby had low Apgars and ultimately needed to be transferred to [facility] for NICU management. Right prior to surgery, the patient was reporting some sensations of difficulty breathing and was satting in the low 80s. This was one of the reasons why she was intubated during the surgery. After the surgery, the patient was still reporting some of these symptoms. A chest x-ray was performed to rule out pulmonary edema secondary to her preeclampsia. The chest x-ray ultimately returned reassuring with a suggestion that this pulmonary vascular congestion. She shortly thereafter was beginning to saturate normally on room air. Also, during surgery, the patient's blood pressures were low and over the first couple of hours after recovery, they were low, but shortly thereafter, her blood pressures spiked back up requiring that her blood pressure medication be restarted. Ultimately, even after her mag recovery, the patient's blood pressure medicine had to be increased with it ultimately being increased to Procardia 60 b.i.d., the day prior to her discharge. With that blood pressure regime, the patient had better blood pressure control with most of her values being either normal or mild. The patient's diabetes postoperatively of the first day were in the 200s. She had better control subsequently, but over the course of the remainder of her postoperative course, they still remained labile with a few being fairly elevated. The patient was also found to be anemic with hemoglobin of 11.5 on admission and 8.9 postoperatively. The patient was started on iron and remained asymptomatic for any anemia. The patient had pretty significant vulvar edema, so her Fry remained in for 2 days. The Fry was removed on postoperative day #3 and the patient was able to void. The patient also felt that she was fluid overloaded and requested Lasix as well as albumin. I explained that albumin may not be necessary and the Lasix was a reasonable option. Discussed given Lasix with [facility] who recommended a regime of 40 mg t.i.d. p.o. The patient felt much better after this was given. Her creatinine, which was elevated immediately after surgery at 1.4 by postoperative day #2, had dropped to 0.9. With the addition of Lasix, her creatinine did bump, but only to 1.0. Since the patient's baby was in NICU and her blood pressure as well as diabetes had all been improved vastly, decision was made to discharge home with the understanding that the patient would check her blood pressures regularly and call if she notice any highs or lows. Of note, the patient was restarted on her Synthroid postoperatively and the patient was also noted to have a subconjunctival hemorrhage of her right eye. She did have some blurred vision. Phone discussion with Ophthalmology felt that some of her vision changes may be related to her diabetes and that she could follow up as an outpatient regarding the hemorrhage. The patient also was noted to have metabolic acidosis directly after surgery with a CO2 of 9, which improved over her postoperative course. DISCHARGE INSTRUCTIONS: The patient was told not to lift anything greater than 20 pounds, have pelvic rest for 6 weeks, not to drive on narcotics. The patient was to call if she had headache, changes in vision, abdominal pain, nausea, vomiting, fevers or chills, or any additional questions or concerns. FOLLOWUP APPOINTMENT: The patient is to follow up in our office in 1 week for blood pressure check. The patient was also to arrange for an appointment in 1-[address] Montalvo in Ophthalmology for her conjunctival hemorrhage. DISCHARGE MEDICATIONS: The patient was given a prescription for Percocet 5, 15 pills; Motrin 800 mg, 30 pills; Procardia-XL 60 mg, 30 pills; ferrous sulfate 325 mg, 60 pills, add Colace ____ sulfate 100 mg, 30 pills. CARINA MANN MD DR: Sarbjit JOB#: [id number] / [id number] [facility]
--- NOTE | 2020-06-17 13:08 | PATHOLOGY ---
[facility] Accession Number: [id number] . 01 Material submitted: . placenta - PLACENTA AND UMBILICAL CORD . 01 Clinical history: . 25-year-old female with type I diabetes. 35 5/7 weeks, complicated by hypothyroidism, preeclampsia, labor and a prolonged second stage of labor. section with general anesthetic. head wedged. Vacuum applied during delivery. Apgars (1-0, 5-3,10-3) NICU admission. Mag Sulfate during labor. . . . 02 Diagnosis: Placenta, section: - Premature, torres placenta weighing 668 grams (above the 95th percentile for a 35-week gestation). - Three vessel umbilical cord measuring 38.3 cm in length, with eccentric insertion into the chorionic plate, and remnant vitelline vessels. - Chronic lymphocytic deciduitis. - Decidual microcyst formation. - Chorangiosis. - Markedly increased number of nucleated red blood cells within vascular structures. ([facility]; 06/13/2020) [facility] 06/17/2020 1223 Local . 02 Electronically signed: . Patrica Beltre MD, Pathologist NPI- [id number] . 01 Gross description: . The specimen is received in formalin, labeled "Stacia Ho, placenta". Received is a torres placenta with attached membranes and umbilical cord with a trimmed placental weight of 668 g and measuring 21.7 x 19.9 x 2.7 cm in greatest dimensions. The membranes are pink-luo and translucent in appearance, and the site of membrane rupture is 3.1 cm from the placental margin. The surface is intact displaying a normal arborizing vasculature pattern and a slight amount of focal fibrin deposition. The trivascular umbilical cord measures 38.3 cm in length by up to 2.2 cm in diameter and inserts eccentrically, 6.6 cm from the closest placental margin. The umbilical cord is pale vogel to pale luo and edematous in appearance. The maternal surface is predominantly intact displaying an area of disruption measuring 7.5 x 5.8 cm, as well as a normal amount of cotyledons; a moderate amount of adherent blood coagulum is seen on the surface. Sectioning reveals red-brown cut surfaces with no grossly distinct nodules or lesions. The specimen is submitted representatively as follows: . A1 proximal umbilical cord and surface vessels A2 umbilical cord and membrane roll A3 regional sales representative section of disrupted maternal surface A4 regional sales representative section of intact maternal surface. ([facility]; 06/10/2020) QA/QA 06/10/2020 1321 Local . 02 Pathologist provided ICD-10: O43.893, Z37.0, Z3A.35 . 02 CPT . 003145 Specimen Comment: A courtesy copy of this report has been sent to [phone], [phone] Specimen Comment: [id number] Specimen Comment: Report sent to / DR LEZAMA Performed at: 01 [facility] [address], [place] [id number] MD Srikanth London MD Phone: [phone] Performed at: 02 [facility] [address] [place], [place] [id number] MD Adrian Leahy MD Phone: [phone]
== END 2020-06-12 09:15 | disposition home or self-care (01) | DRG 786 ==
LOC: 3 SO LND 18:27 → OBSVTOIN 19:15 → 3 NORTH 06-10 08:11
PROVIDERS: ADMIT Obstetrics & Gynecology; ATTEND Obstetrics & Gynecology
PROC: 10D00Z1 Extraction of Products of Conception, Low, Open Approach (ICD-10-PCS; principal; 2020-06-09)
DX: O62.2 Other uterine inertia (principal); O24.02 Pre-existing type 1 diabetes mellitus, in childbirth; E87.2 Acidosis; O11.4 Pre-existing hypertension with pre-eclampsia, complicating childbirth; Z3A.35 35 weeks gestation of pregnancy; Z37.0 Single live birth; O66.0 Obstructed labor due to shoulder dystocia; O99.284 Endocrine, nutritional and metabolic diseases complicating childbirth; Z96.41 Presence of insulin pump (external) (internal); E10.9 Type 1 diabetes mellitus without complications; E03.9 Hypothyroidism, unspecified; D64.9 Anemia, unspecified; O99.02 Anemia complicating childbirth; Z82.49 Family history of ischemic heart disease and other diseases of the circulatory system; Z82.3 Family history of stroke; Z83.3 Family history of diabetes mellitus; Z83.49 Family history of other endocrine, nutritional and metabolic diseases; H11.31 Conjunctival hemorrhage, right eye
CPT/HCPCS: 36415; 71045; 80048; 80053; 81001; 82962; 83615; 83735; 84550; 85025; 85027; 86592; 86850; 86900; 86901; 88307; 96365; 96367; 96368; 96374; 96375; 96376; G0379; J0330; J0360; J0456; J0595; J0690; J1885; J2274; J2370; J2405; J2590; J2704; J2765; J2795; J3010; J3475; J3490; J7030; J7050; J7120; 99285-25; G0378; Q0163

== ENCOUNTER → 2020-10-10 | Outpatient (CLI) | payer OTHER ==
[~2020-10-10] MED LIST changes: +DOCU-109 PO; +FERR325T14 PO; +IBUP-1060 PO; +LEVO150T PO; +NIFE60TA PO; +OXYC1TAB15 PO; +PREN1TAB58 PO
[2020-10-10 08:00] LABS: BACTERIA,URINE MOD /HPF (0-FEW); BILIRUBIN,URINE NEGATIVE (NEG); CLARITY,URINE CLEAR; COLOR,URINE YELLOW; NITRITE,URINE NEGATIVE (NEG); PROTEIN,URINE NEGATIVE (NEG-TRACE); UROBILINOGEN,URINE 0.2 mg/dL (0.2 mg/dL)
[2020-10-10 08:04] LABS: ALBUMIN 3.7 g/dL (3.4-5.0); ALBUMIN/GLOBULIN RATIO 0.9 (1.0-1.7); CALCIUM 9.3 mg/dL (8.5-10.1); CREATININE 0.9 mg/dL (0.6-1.0); GFR 77.6; POTASSIUM 3.5 mmol/L (3.5-5.1); TOTAL BILIRUBIN 0.6 mg/dL (0.2-1.0); TOTAL PROTEIN 7.7 g/dL (6.4-8.2)
[2020-10-10 22:08] LABS: CREAT RD UR 60.4 mg/dL (Not Estab.); MICROALB RD UR 52.3 ug/mL (Not Estab.)
[2020-10-11 00:08] LABS: HEMOGLOBIN A1C 7.4 % (4.8-5.6)
== END ==
LOC: LAB 07:17
PROVIDERS: ATTEND Family Medicine
DX: I10 Essential (primary) hypertension (principal); E03.9 Hypothyroidism, unspecified
CPT/HCPCS: 80053; 80061; 81001; 82043; 82570; 83036; 84436; 84443